=== PATIENT | male | born 1960 | race Asian ===

== ENCOUNTER 2016-08-11 08:03 | Outpatient (CLI) | payer BC ==
[2016-08-11 08:28] LABS: #Lymphocytes 1.4 thou/uL (1.20-3.40); #Monocytes 0.4 thou/uL (0.11-0.59); #Neutrophils 2.8 thou/uL (1.40-6.50); %Lymphocytes 29.7 % (21.0-51.0); %Monocytes 8.2 % (0.0-10.0); %Neutrophils 60.1 % (42.0-75.0); Hemoglobin 15.3 g/dL (14.0-18.0); Mean Corpuscular Hemoglobin 31.7 pg (27.0-31.0); Mean Corpuscular Volume 90.6 fl (80.0-94.0); Mean Platelet Volume 6.1 fL (7.4-10.4); Platelet Count 298 thou/uL (130-400); RBC Distribution Width 12.4 % (11.5-14.5); Red Blood Cell (RBC) Count 4.84 mill/uL (4.70-6.10); White Blood Cell (WBC) Count 4.7 thou/uL (4.8-10.8)
[2016-08-11 09:08] LABS: ALT (SGPT) 51 U/L (0-55); AST (SGOT) 40 U/L (5-34); Albumin 4.1 g/dL (3.5-5.0); Alkaline Phosphatase 100 U/L (40-150); Anion Gap 14 mmol/L (10-20); BUN (Urea Nitrogen) 13 mg/dL (8.4-25.7); Bilirubin, Total 0.8 mg/dL (0.2-1.2); Calc. Creatinine Clearance 0 mL/min (70-130); Calcium 9.6 mg/dL (7.8-10.44); Carbon Dioxide 24 mmol/L (22-29); Cardiac Risk 6.1 (Less than 4.5); Chloride 104 mmol/L (98-107); Cholesterol 232 mg/dL (< 200 Desired); Estimated GFR-MDRD 64; Globulin 3.7 g/dL (2.4-3.5); Glucose 94 mg/dL (70-105); HDL Cholesterol 38 mg/dL (>60 Neg Risk); LDL Cholesterol, Calculated 136 mg/dL; Protein, Total 7.8 g/dL (6.0-8.3); Sodium 138 mmol/L (136-145); Triglycerides 292 mg/dL (Less than 150)
== END 2016-08-11 08:04 | disposition home or self-care (01) ==
LOC: BURLAB 08:03
PROVIDERS: ATTEND Internal Medicine Nephrology
DX: Z48.22 Encounter for aftercare following kidney transplant (principal); Z94.0 Kidney transplant status
CPT/HCPCS: 36415; 80053; 80061; 80158; 85025